=== PATIENT | male | born 1980 | race Two or more races ===

== ENCOUNTER 2022-09-10 14:30 | Emergency (ER) | payer OTHER ==
[~2022-09-10] VITALS: Ht 188 cm; Wt 143.0 kg
[2022-09-10] MEDS ORDERED: TETRACAINE HCL 0.5% OPTH(EYE) SOLN 4ML RIGHTEYE ONE (17:00)
[2022-09-10 17:01] VITALS: BP 148/82
[2022-09-10] MEDS ORDERED: CIPR0.3S67 OP (17:15)
== END 2022-09-10 17:37 | disposition home or self-care (01) ==
LOC: ER 14:30
DX: S05.02XA Injury of conjunctiva and corneal abrasion without foreign body, left eye, initial encounter (principal); S05.01XA Injury of conjunctiva and corneal abrasion without foreign body, right eye, initial encounter; Z79.899 Other long term (current) drug therapy; X58.XXXA Exposure to other specified factors, initial encounter; Y93.89 Activity, other specified; Y92.63 Factory as the place of occurrence of the external cause; Y99.8 Other external cause status

== ENCOUNTER → 2023-08-06 | Day surgery (SDC) | payer OTHER, MEDICAID ==
[~2023-08-06] VITALS: Ht 185.4 cm; Wt 149.7 kg
[~2023-08-06] MED LIST: ANGIOMAX 250 MG VIAL IV ONE; ASPI1TAB20 PO; ATOR20TA50 PO; HEPARIN SODIUM (PORCINE) 5000 UNITS/ML 1ML VIAL ONE; IODIXANOL 320MG/ML 100ML BTL IV ONE; LIDOCAINE 2%HCL (LOCAL ANESTH.) INJ 20ML MDV ONE; LISI-706 PO; MIDAZOLAM HCL 2MG/2ML 2ml VIAL (1mg/ml) ONE; SODIUM CHL 0.9% 0 ML ONE; VERAPAMIL 2.5MG/ML INJ 2ML VIAL IV ONE; fentaNYL CITRATE 100 MCG/2 ML VL ONE
== END | disposition home or self-care (01) ==
LOC: CATH 09:42
PROVIDERS: ATTEND Internal Medicine
DX: R94.39 Abnormal result of other cardiovascular function study (principal); I10 Essential (primary) hypertension; E78.5 Hyperlipidemia, unspecified; E66.9 Obesity, unspecified; Z53.8 Procedure and treatment not carried out for other reasons; Z79.82 Long term (current) use of aspirin; Z79.899 Other long term (current) drug therapy; Z98.890 Other specified postprocedural states; Z87.891 Personal history of nicotine dependence
CPT/HCPCS: 93005; 93458; C1894; J1644; J7030; Q9967; J2250

== ENCOUNTER 2023-11-01 08:43 | Emergency (ER) | payer OTHER, MEDICAID ==
[~2023-11-01] VITALS: Ht 185.4 cm; Wt 150.0 kg
[~2023-11-01 08:43] MED LIST changes: -ANGIOMAX 250 MG VIAL IV ONE; -HEPARIN SODIUM (PORCINE) 5000 UNITS/ML 1ML VIAL ONE; -IODIXANOL 320MG/ML 100ML BTL IV ONE; -LIDOCAINE 2%HCL (LOCAL ANESTH.) INJ 20ML MDV ONE; -MIDAZOLAM HCL 2MG/2ML 2ml VIAL (1mg/ml) ONE; -SODIUM CHL 0.9% 0 ML ONE; -VERAPAMIL 2.5MG/ML INJ 2ML VIAL IV ONE; -fentaNYL CITRATE 100 MCG/2 ML VL ONE
[2023-11-01 09:02] LABS: Basophils # (auto) 0.1 10 ^3/uL (0-0.2); Basophils % (auto) 0.7 % (0.0-2.0); Eosinophils # (auto) 0.1 10 ^3/uL (0-0.8); Eosinophils % (auto) 0.6 % (0.0-7.0); Hematocrit 47.5 % (41.0-53.0); Hemoglobin 16.2 g/dL (13.5-17.5); Lymphocytes # (auto) 2.5 10 ^3/uL (0.4-5.4); Lymphocytes % (auto) 29.3 % (10.0-50.0); Mean Corpuscular Hemoglobin 32.6 pg (28.0-32.0); Mean Corpuscular Hgb Conc. 34.1 g/dL (32.0-36.0); Mean Corpuscular Volume 95.4 fL (80.0-100.0); Monocytes # (auto) 0.8 10 ^3/uL (0-1.3); Monocytes % (auto) 9.2 % (0.0-12.0); Neutrophils # (auto) 5.2 10 ^3/uL (1.6-8.6); Neutrophils % (auto) 60.2 % (37.0-80.0); Nucleated Red Blood Cells % 0.1 %; Platelet Count (auto) 185 10^3/uL (140-450); Red Blood Cells 4.98 10^6/uL (4.5-5.90); Red Cell Distribution Width 13.4 % (11.8-14.3); White Blood Cell 8.6 10^3/uL (4.4-10.8)
[2023-11-01 09:21] LABS: Alanine Aminotransferase 46 U/L (7-40); Albumin 4.2 g/dL (3.2-4.8); Alkaline Phosphatase 93 U/L (46-116); Anion Gap 4 (5-15); Aspartate Aminotransferase 33 U/L (13-40); BUN/Creatinine Ratio 9.7 (10.0-20.0); Bilirubin, Total 0.6 mg/dL (0.2-1.0); Blood Urea Nitrogen 11 mg/dL (9-23); Calcium 9.4 mg/dL (8.7-10.4); Carbon Dioxide 28 mmol/L (20-30); Chloride 106 mmol/L (98-107); Glucose 134 mg/dL (74-106); Potassium 3.4 mmol/L (3.5-5.1); Sodium 138 mmol/L (136-145); Total Protein 7.4 g/dL (5.7-8.2)
[2023-11-01 11:40] VITALS: PULSE 87; RESP 16; O2SAT 100
[2023-11-01] MEDS: cloNIDine HCL 0.1 MG TAB PO ONE (11:45)
[2023-11-01 13:01] VITALS: BP 149/96; PULSE 89; RESP 18; TEMP 98.1; O2SAT 95
== END 2023-11-01 13:02 | disposition home or self-care (01) ==
LOC: ER 08:43
DX: R07.89 Other chest pain (principal); F41.9 Anxiety disorder, unspecified; J45.909 Unspecified asthma, uncomplicated; I10 Essential (primary) hypertension; Z79.82 Long term (current) use of aspirin
CPT/HCPCS: 36415; 71045; 80053; 84484; 85025; 93005